=== PATIENT | male | born 1990 | race Caucasian/White ===

== ENCOUNTER 2019-02-06 15:25 | Inpatient (IN) | payer MEDICAID ==
--- NOTE | 2019-02-06 15:29 | ED Physician Documentation ---
PD HPI URI - Stated complaint Stated Complaint: CHEST PAIN/COUGHING UP BLOOD - History obtained from History obtained from: Patient - History of Present Illness Timing - onset: How many weeks ago (1) Timing duration: Weeks (1) Timing details: Gradual onset, Still present Associated symptoms: Fever, Chills, Nasal congestion, Productive cough, Hemoptysis. No: Sore throat Contributing factors: Travel (returned from [place] recently.). No: Sick contact, COPD / asthma Similar symptoms before: Has not had sx before Recently seen: Not recently seen Review of Systems Constitutional: reports: Fever, Chills, Myalgias, Fatigue Nose: reports: Congestion Throat: denies: Sore throat Cardiac: reports: Chest pain / pressure (He has had pain with inspiration and particularly cough progressively over the last week as he has had worsening cough. He complains of some hemoptysis along with phlegm production. He has had feeling of fever and chills.) Respiratory: reports: Dyspnea, Cough, Hemoptysis. denies: Wheezing GI: reports: Nausea (with poor oral intake for several days). denies: Vomiting, Diarrhea Skin: denies: Rash, Lesions Endocrine: denies: Weight loss PD PAST MEDICAL HISTORY - Past Medical History Cardiovascular: None Respiratory: None Neuro: None Endocrine/Autoimmune: None Psych: ADD/ADHD - Past Surgical History Past Surgical History: No - Present Medications Home Medications: Ambulatory Orders Medication Instructions Recorded Confirmed Lidocaine Patch 5% [Lidoderm Patch] 1 each TOP DAILY PRN #10 patch 04/07/16 Methocarbamol [Robaxin] 750 mg PO Q6H PRN #12 tablet 04/07/16 traMADol [Ultram] 50 mg PO Q6H PRN #12 tablet 04/07/16 - Allergies Allergies/Adverse Reactions: Allergies Allergy/AdvReac Type Severity Reaction Status Date / Time acetaminophen [From Tylenol] Allergy Unknown Verified 12/29/15 13:22 ibuprofen Allergy Unknown Verified 12/29/15 13:22 - Living Situation Living Situation: reports: With spouse/s.o. - Social History Does the pt smoke?: Yes Smoking Status: Current every day smoker Does the pt drink ETOH?: No Does the pt have substance abuse?: Yes - Immunizations Immunizations are current?: Yes PD ED PE NORMAL - Vitals Vital signs reviewed: Yes - General General: Alert and oriented X 3, Well developed/nourished, Other (He does appear little bit anxious. He is also appearing in discomfort with cough and deep breathing. Lung sounds are symmetric. His oxygenation is 97%. He is tachycardic. Has some mild fever here.) - HEENT HEENT: Ears normal, Pharynx benign - Neck Neck: Supple, no meningeal sign, No adenopathy, No JVD - Cardiac Cardiac: No murmur. No: RRR (Regular but tachycardic) - Respiratory Respiratory: No: Clear bilaterally (There is some mild scattered wheezing. There is diminished breath sounds throughout due to guarded breathing from pain. There are no obvious coarse sounds heard.) - Abdomen Abdomen: Soft, Non tender, Non distended - Back Back: No CVA TTP - Derm Derm: Normal color, Warm and dry - Extremities Extremities: No deformity, Normal ROM s pain, No edema, No calf tenderness / cord - Neuro Neuro: Alert and oriented X 3, No motor deficit, Normal speech Eye Opening: Spontaneous Motor: Obeys Commands Results - Vitals Vitals: Vital Signs - 24 hr 02/06/19 02/06/19 02/06/19 15:27 15:43 16:20 Temperature 38 C H Heart Rate 144 H 135 H 121 H Respiratory 20 24 24 Rate Blood Pressure 124/72 124/72 O2 Saturation 97 95 02/06/19 16:36 Temperature Heart Rate 111 H Respiratory 25 H Rate Blood Pressure 110/60 O2 Saturation 95 Oxygen O2 Source Room air - EKG (time done) 15:34 Rate: Rate (enter#) (136) Rhythm: Sinus tachycardia Gary: Normal Intervals: Normal OR QRS: Normal Ischemia: Normal ST segments. No: ST elevation c/w ischemia, ST depression - Labs Labs: Laboratory Tests 02/06/19 02/06/19 02/06/19 15:45 15:45 15:45 WBC 23.6 H RBC 4.19 L Hgb 12.6 L Hct 38.2 L MCV 91.0 MCH 29.9 MCHC 32.9 RDW 14.7 Plt Count 160 MPV 10.2 Neut # (Auto) Not Reportable Lymph # (Auto) Not Reportable Providence # (Auto) Not Reportable Eos # (Auto) Not Reportable Baso # (Auto) Not Reportable Absolute Nucleated RBC Not Reportable Total Counted 100 Band Neuts % (Manual) 7 Abnorm Lymph % (Manual) 0 Nucleated RBC % Not Reportable Neutrophils # (Manual) 21.7 H Lymphocytes # (Manual) 0.9 L Monocytes # (Manual) 0.9 Eosinophils # (Manual) 0.0 Basophils # (Manual) 0.0 Differential Comment MANUAL DIFFERENTIAL Manual Slide Review Indicated WBC Morphology NORMAL APPEARANCE Platelet Estimate NORMAL (130-450,000) Platelet Morphology NORMAL APPEARANCE RBC Morph Micro Appear 1+ HYPOCHROMASIA Sodium 127 L Potassium 3.6 Chloride 89 L Carbon Dioxide 24 Anion Gap 14.0 H BUN 47 H Creatinine 1.2 Estimated GFR (MDRD) 72 L Glucose 194 H Lactic Acid 2.7 H Calcium 8.1 L Total Bilirubin 2.4 H AST 119 H ALT 96 H Alkaline Phosphatase 133 H Total Protein 7.0 Albumin 2.6 L Globulin 4.4 H Albumin/Globulin Ratio 0.6 L Lipase 19 L - Rads (name of study) chest xray Radiology: Prelim report reviewed (Multifocal infiltrates consistent with multifocal pneumonia versus septic emboli or emboli.), See rad report PD MEDICAL DECISION MAKING - ED course Complexity details: re-evaluated patient (He does have an elevated white count. He had a low grade fever here. His lactate is elevated as are multiple lab data meant abnormalities. His progression of cough with worsening pain and hemoptysis along with fever and chills would be consistent with pneumonia. There is no calf tenderness no pedal edema. No history of clotting disorders. He is a smoker but no history of asthma. I talked with the hospitalist who will place him in the hospital for further care.), considered differential (It does s ound likely to be bronchitis or pneumonia given fever chills cough and then some hemoptysis. Will check chest x-ray as well as blood tests. We will give him some IV fluids and medication for pain and inflammation. Get a chest x-ray to evaluate for pneumonia or pneumothorax. Will try a nebulizer treatment as well.), d/w patient Departure - Departure Disposition: 66 [facility] DC/Xfer Clinical Impression: Tachycardia, Hemoptysis Pneumonia Qualifiers: Pneumonia type: due to unspecified organism Laterality: bilateral Lung location: unspecified part of lung Qualified Code(s): J18.9 - Pneumonia, unspecified organism Sepsis Qualifiers: Sepsis type: sepsis due to unspecified organism Qualified Code(s): A41.9 - Sepsis, unspecified organism Condition: Stable Record reviewed to determine appropriate education?: Yes
[2019-02-06] MEDS ORDERED: SODIUM CHLORIDE 0.9% 1,000 ML IV ONE ×2 (15:42→16:15)
[2019-02-06] MEDS ORDERED: ALBUTEROL NEB 2.5 MG/3 ML INH STA (15:42)
[2019-02-06] MEDS ORDERED: KETOROLAC 15 MG/ML VIAL IVP STA (15:42)
[2019-02-06] MEDS ORDERED: DEXAMETHASONE 10 MG/ML VIAL IVP STA (15:44)
[2019-02-06] MEDS ORDERED: MORPHINE 10 MG/ML VIAL IVP STA (15:44)
[2019-02-06 15:53] LABS: BASOPHILS % (AUTO) 0.2 %; EOSINOPHILS % (AUTO) 0.1 %; HGB - HEMOGLOBIN 12.6 g/dL (14.0-18.0); LYMPHOCYTES % (AUTO) 3.9 %; MEAN CORPUSCULAR HEMOGLOBIN 29.9 pg (27.0-31.0); MEAN CORPUSCULAR HGB CONC 32.9 g/dL (32.0-36.0); MEAN PLATELET VOLUME 10.2 fL (7.4-11.4); MONOCYTES % (AUTO) 4.4 %; NEUTROPHILS % (AUTO) 91.4 %; PLT - PLATELET COUNT 160 10^3/uL (130-450); RED BLOOD COUNT 4.19 10^6/uL (4.70-6.10); RED CELL DISTRIBUTION WIDTH 14.7 % (12.0-15.0); WHITE BLOOD COUNT 23.6 x10^3/uL (4.8-10.8)
[2019-02-06 15:54] LABS: ABNORMAL LYMPHS % (MANUAL) 0 %
[2019-02-06 16:06] LABS: ALBUMIN 2.6 g/dL (3.2-5.5); ALBUMIN/GLOBULIN RATIO 0.6 (1.0-2.2); BILIRUBIN,TOTAL 2.4 mg/dL (0.2-1.0); CALCIUM 8.1 mg/dL (8.5-10.3); CREATININE 1.2 mg/dL (0.6-1.2)
[2019-02-06 16:12] LABS: BAND NEUTROPHILS % (MANUAL) 7 %; DIFFERENTIAL COMMENT MANUAL DIFFERENTIAL; LYMPHOCYTES # (MANUAL) 0.9 10^3/uL (1.5-3.5); LYMPHOCYTES % (MANUAL) 4 %; MONOCYTES # (MANUAL) 0.9 10^3/uL (0.0-1.0); NEUTROPHILS # (MANUAL) 21.7 10^3/uL (1.5-6.6); NEUTROPHILS % (MANUAL) 85 %; PLATELET ESTIMATE, MANUAL NORMAL (130-450,000) (NORMAL); PLATELET MORPHOLOGY NORMAL APPEARANCE (NORMAL); RBC MORPHOLOGY (MULTIPLE) 1+ HYPOCHROMASIA (NORMAL)
[2019-02-06] MEDS ORDERED: CEFEPIME 2 GM in SODIUM CHLORIDE 0.9% MINIBAG 100 ML IV STA (16:20)
--- NOTE | 2019-02-06 16:29 | XRAY Report ---
Reason: cough and chest pain Procedure Date: 02/06/2019 Accession Number: [id number] / [id number] Procedure: XR - Chest 1 View X-Ray CPT Code: 60621 FULL RESULT: EXAM: CHEST RADIOGRAPHY EXAM DATE: 02/06/2019 03:56 PM. CLINICAL HISTORY: Cough and chest pain. COMPARISON: CT THORACIC SPINE 04/07/2016 5:40 PM. TECHNIQUE: 1 view. FINDINGS: Lungs/Pleura: Patchy airspace nodular opacities are seen in both lungs, largest in the right midlung zone. Differentials in acute setting include multifocal pneumonia, septic emboli, infarcts. There is a trace left pleural effusion. Mediastinum: Within exam limitations, the cardiomediastinal contour is normal. Other: None. IMPRESSION: Patchy airspace nodular opacities in both lungs, largest in right midlung zone. Differentials in acute setting include multifocal pneumonia, septic emboli or infarcts. Follow-up to complete resolution is recommended. Multifocal adenocarcinoma is not excluded. A trace left pleural effusion. RADIA
[2019-02-06] MEDS ORDERED: ONDANSETRON ODT 4 MG TABLET TL PRN (16:34)
[2019-02-06] MEDS ORDERED: ONDANSETRON 4 MG/2 ML VIAL IVP PRN (16:34)
[2019-02-06] MEDS ORDERED: ALBUTEROL NEB 2.5 MG/3 ML INH PRN (16:35)
[2019-02-06] MEDS ORDERED: LIDOCAINE PATCH 5% TOP PRN (16:42)
[2019-02-06] MEDS ORDERED: HYDROmorphone 1 MG/ML CARPUJECT IVP STA (16:51)
[2019-02-06] MEDS ORDERED: VANCOMYCIN INJ 1 GM in SODIUM CHLORIDE 0.9% 250 ML IV SCH (17:00)
[2019-02-06] MEDS: SODIUM CHLORIDE 0.9% 1,000 ML IV SCH (17:37)
[2019-02-06] MEDS: SACCHAROMYCES BOULARDII 250 MG CAPSULE PO SCH (17:37)
[2019-02-06] MEDS: SODIUM CHLORIDE FLUSH 0.9% 10 ML SYRINGE IVP SCH (17:39)
[2019-02-06 17:44] LABS: MUDS CUTOFF CONCENTRATIONS CUTOFF CONC BELOW:
[2019-02-06 17:46] LABS: BILIRUBIN,URINE NEGATIVE (NEGATIVE); GLUCOSE, URINE (UA) NEGATIVE (NEGATIVE); KETONES,URINE (UA) NEGATIVE (NEGATIVE); LEUKOCYTE ESTERASE, URINE NEGATIVE (NEGATIVE); NITRITE,URINE NEGATIVE (NEGATIVE); OCCULT BLOOD,URINE MODERATE (NEGATIVE); PROTEIN,URINE 30 mg/dL (NEGATIVE); UROBILINOGEN,URINE 1 (NORMAL) E.U./dL (NORMAL)
[2019-02-06 17:59] LABS: AMPHETAMINE SCREEN,URINE POSITIVE (NEGATIVE); BENZODIAZEPINES SCREEN, URINE NEGATIVE (NEGATIVE); CLARITY,URINE CLEAR (CLEAR); COCAINE SCREEN URINE NEGATIVE (NEGATIVE); METHADONE SCREEN, URINE NEGATIVE (NEGATIVE); METHAMPHETAMINES SCREEN, URINE POSITIVE (NEGATIVE); OPIATE SCREEN, URINE POSITIVE (NEGATIVE); OXYCODONE SCREEN, URINE NEGATIVE (NEGATIVE); PROPOXYPHENE SCREEN, URINE NEGATIVE (NEGATIVE); RBC,URINE 0-5 /HPF (0-5); SQUAMOUS EPITHELIAL CELL,UR RARE Squamous (<= Few); TRICYCLIC ANTIDEPRESSANT,URINE NEGATIVE (NEGATIVE)
[2019-02-06 18:00] LABS: BACTERIA,URINE None Seen /HPF (None Seen)
[2019-02-06] MEDS ORDERED: VANCOMYCIN INJ 1 GM, VANCOMYCIN INJ 500 MG in SODIUM CHLORIDE 0.9% 500 ML IV ONE (18:00)
--- NOTE | 2019-02-06 20:27 | HISTORY & PHYSICAL EXAMINATION ---
DATE OF SERVICE: 02/06/2019 Physician: Blaire Allan MD PRIMARY CARE PROVIDER: None, patient just moved back to this area on 01/24/2019. He went to work on 01/29/2019. 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 By the end of the shift, he said he was exhausted, covered in sweat, and starting to have just diffuse body aches and felt miserable. He could not go to work the next day and just spent the next day lying in bed. He started having a dry, nonproductive cough. He does smoke 1/2 pack per day, there is no one else sick. He just moved back from [place] and had been helping take care of his mom. He has had no recent dental work done, no surgical procedures done. He used to do heroin. He says the last time he did heroin was in 2016. Over the next few days, he has just felt miserable, spending most of his time in bed. Two days ago, he developed fevers, sweats. Amazingly enough, he has had a good appetite, and right now, he is just starving and would love some food. The cough turned to productive hemoptysis today. He is still weak, so short of breath that he had to come over to the emergency room. He was seen by Dr. Ochoa where his room air saturations were 95%, but he was quite tachycardic in the 130s. His white cell count is 23.6 K, and he has multifocal infiltrates on chest x-ray. In addition to the elevated white cell count, he is hyponatremic, dehydrated with a BUN of 47, and he has a lactic acid of 2.7. Liver enzymes are elevated. Urine has proteinuria, occult blood. Toxicology urine is pending. The patient meets criteria for sepsis. As such, he has been placed on cefepime and vancomycin and is being admitted to Med/Surg. PAST MEDICAL HISTORY 1. 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 2. Current tobacco abuser. 3. Remote history of hernia repair when he was an . ALLERGIES: ACETAMINOPHEN AND IBUPROFEN. He says that when he takes them, especially in high doses, he starts having problems with his respiration and he cannot breathe. When he was seen in the emergency room in 2015 for heroin withdrawal, he was on a Lidoderm patch, Robaxin, tramadol. He has not taken any of those medications in several years. SOCIAL HISTORY: Born in [place]. Started smoking 1/2 pack per day at the age of 14. Has experimented with many different substances that were illegal, but last used heroin in 2016. Denies any other use except cannabis since 2016. 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 He had gone to [place] to go take care of his mom for a while and had left the [place] around 2017. He just came back on the stated date above. [place]. FAMILY HISTORY: Mom is 58 and completely healthy as far as he knows. Dad is around 59, but is not in contact with him, so does not know anything about him. No siblings. His two children are completely healthy. REVIEW OF SYSTEMS CONSTITUTIONAL: In the last week, he has had fevers, chills, sweats, exhaustion, but prior to that, has been healthy. ENT: Terrible dentition. Desperately needs to see a dentist. Denies any problems with dysphagia, dysarthria, blurred vision, problems speaking, problems swallowing. PULMONARY: Positive as above. CARDIAC: Negative. Never had problems with valvular heart disease, rheumatic fever, orthopnea, edema. Pleuritic chest pain started last Saturday and has been quite severe. It is sharp and stabbing, especially in the left chest. GASTROINTESTINAL: Denies change in bowel habits, diarrhea, blood in stool. Denies icterus. Denies any abdominal pain, other than his muscles hurt from the coughing. No epigastric pain. No flank pain. GENITOURINARY: Denies dysuria, urgency, frequency. No change in the color of his urine. DERMATOLOGIC: No rashes, new lesions, pruritus. JOINTS: Denies new joint pain. 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 PSYCHIATRIC: Denies suicidal ideation, hallucinations, delusions. No depression or anxiety. NEUROLOGIC: Denies seizures, syncope, memory loss, blurred vision, headaches, any focal deficits. PHYSICAL EXAMINATION VITAL SIGNS: His temperature is 38 in the emergency room, pulse 144, blood pressure 124/72, respirations 20, and he is 97% on room air. After being transitioned to Med/Surg, his temperature is 37, pulse is 106, blood pressure 116/53, respirations 20, and he is 96% on room air. GENERAL: He is an exceedingly slender, young, white male who is pale. The skin around his eyelids is red, he is sitting upright in bed comfortably eating while his girlfriend is leaving the room. HEAD AND NECK: Has severely poor dentition, gaunt facies with bilateral temporal wasting, but no facial asymmetry. Normal speech. The back of the pharynx is normal. No exudate. NECK: Supple with anterior cervical adenopathy. No goiter or bruits. LUNGS: Have a squeaking rhonchi at inhalation, both lungs, diffusely and discretely. The left mid lung field has dullness and egophony. Occasional crackles, but when he has a deep cough, they disappear. No wheezing. HEART: PMI is normally placed in a very thin AP diameter chest wall. It is tachycardic with a very soft systolic ejection murmur at the apex. ABDOMEN: Soft, nontender. No organomegaly palpable. No hernias. No masses. EXTREMITIES: Without clubbing, cyanosis, or edema, but he has some joint deformities, especially his index finger and thumb, that he attributes to work place injuries. SKIN: Diaphoretic, pale. No rashes. NEUROLOGIC: He is alert and oriented to person, place, and time, follows 2-step commands, is able to sit up in the bed, feed himself, get up and walk to the bathroom without any assist or ataxia. LABORATORY DATA: White cell count is 23.6, hemoglobin 12.6, hematocrit 38.2. He has a left shift with neutrophils. Sodium 127, potassium 3.6, chloride 89, anion gap 14, BUN 14, creatinine 1.2, GFR 72, glucose 194, lactic acid 2.7, calcium 8.1. Total bilirubin 2.4, AST 119, ALT 96, alkaline phosphatase 133. Urinalysis had hematuria, but no infection. Toxicology screen pending. DIAGNOSTIC DATA: X-ray of the chest is with patchy airspace nodular opacities in both lungs, largest in the right mid lung zone. Differentials in this acute setting include multifocal pneumonia, septic emboli, or infarcts. Multifocal adenocarcinoma is not excluded in this 29-year-old male. ASSESSMENT/PLAN 1. Sepsis with multisystem organ involvement, and organ source of infection is pneumonia. Patient will be on sepsis protocol and started on empiric antibiotic therapy for pulmonic involvement. Atttestation that the patient will be discharged within 96 hours. 2. Multifocal community-acquired pneumonia in a patient who has a remote history of substance abuse. Again, sepsis protocol with cefepime and vancomycin day 1. He has already had blood cultures. We will attempt to induce sputum cultures. 3. Embolic appearance of pneumonia with high LFT's. History of drug abuse but is adamant he hasn't done any substances since 2016. Denies any history of endocarditis. Does have poor dentition with no recent dental work. I do hear a slight murmur. We will check echocardiogram. Will check MUDDS. 4. Abnormal liver function studies. Check hepatitis panel and ultrasound of liver and gallbladder. He has a negative abdominal exam. 5. High anion gap acidosis. I suspect sepsis is the cause. IV fluids for hydration, antibiotics should resolve this. 6. Tobacco abuse. Offered nicotine patch and he declines at this time. 7. FULL CODE STATUS. 8. Deep venous thrombosis prophylaxis will be DAPHNIE rubio. TD: 02/06/2019 18:37 ANNE
[2019-02-06] MEDS: SODIUM CHLORIDE FLUSH 0.9% 10 ML SYRINGE IVP PRN (22:32)
[2019-02-07] MEDS: CEFEPIME 2 GM in SODIUM CHLORIDE 0.9% MINIBAG 100 ML IV SCH ×4 (00:04→21:09)
[2019-02-07] MEDS: SODIUM CHLORIDE FLUSH 0.9% 10 ML SYRINGE IVP SCH ×3 (01:38→16:58)
[2019-02-07] MEDS: VANCOMYCIN INJ 1 GM in SODIUM CHLORIDE 0.9% 250 ML IV SCH ×3 (02:00→17:44)
[2019-02-07] MEDS: traMADol 50 MG TABLET PO PRN (03:52)
[2019-02-07] MEDS: SODIUM CHLORIDE 0.9% 1,000 ML IV SCH ×3 (05:27→19:35)
--- NOTE | 2019-02-07 08:29 | Ultrasound Report ---
Reason: multifocal pna, metamphet, septic, abnml lft Procedure Date: 02/07/2019 Accession Number: [id number] / [id number] Procedure: US - Abdomen Complete CPT Code: FULL RESULT: EXAM: ABDOMEN ULTRASOUND EXAM DATE: 02/07/2019 04:59 AM. CLINICAL HISTORY: Abnormal liver enzymes. Sepsis. Pneumonia. COMPARISON: None. TECHNIQUE: Real-time scanning was performed with static images obtained. FINDINGS: Liver: Enlarged, with right lobe 20.8 cm in height. Grossly smooth capsule. A somewhat nodular echogenic focus in the left lobe near the falciform ligament measures 1.8 x 1.3 x 1.6 cm, probable focal fatty deposition than focal lesion such as cavernous hemangioma. Mild geographic increased parenchymal echogenicity suggestive of fatty infiltration. No other focal lesions identified. Main portal vein flow: Hepatopetal. A small periportal lymph node measures 0.9 cm short axis, likely reactive. Gallbladder: Mobile gallstone 1.2 cm in maximal diameter. No gallbladder wall thickening, pericholecystic fluid, or sonographic Fields sign. Biliary System: Common bile duct measures 5.3 mm. No apparent intraductal filling defect or intrahepatic ductal dilatation. Pancreas: Unremarkable. Kidneys: No hydronephrosis or focal abnormalities. Right kidney 11.8 cm and left kidney 12.6 cm in length. Spleen: 14.5 cm in craniocaudal length. No focal abnormality. Aorta and Inferior Vena Cava: Normal caliber abdominal aorta. Patent IVC. Other: Trace perihepatic and perisplenic free fluid. IMPRESSION: 1. Cholelithiasis without sonographic signs of acute cholecystitis. 2. Upper normal caliber CBD for age. 3. Hepatosplenomegaly and trace ascites. 4. Suspect mild geographic hepatic steatosis and focal fatty deposition adjacent to the falciform ligament. No obviously suspicious liver lesion or nodular liver capsule to indicate lluvia cirrhosis. 5. A small reactive periportal node. 6. Remainder of the exam is unremarkable. RADIA
[2019-02-07] MEDS: SACCHAROMYCES BOULARDII 250 MG CAPSULE PO SCH ×2 (08:36→17:44)
[2019-02-07] MEDS: POLYETHYLENE GLYCOL 3350 17 GM PACKET PO SCH (08:37)
[2019-02-07] MEDS ORDERED: AZITHROMYCIN INJ 500 MG in SODIUM CHLORIDE 0.9% 250 ML IV SCH (09:00)
[2019-02-07] MEDS ORDERED: cefTRIAXone 2 GM in SODIUM CHLORIDE 0.9% MINIBAG 100 ML IV SCH (09:00)
[2019-02-07] MEDS: LORazepam 0.5 MG TABLET PO PRN ×3 (09:30→23:44)
[2019-02-07] MEDS: NICOTINE 14 MG PATCH TOP SCH (09:31)
[2019-02-07 10:00] LABS: CALCIUM 8.1 mg/dL (8.5-10.3)
[2019-02-07 10:03] LABS: BASOPHILS # (AUTO) 0.1 10^3/uL (0.0-0.1); BASOPHILS % (AUTO) 0.2 %; HGB - HEMOGLOBIN 11.4 g/dL (14.0-18.0); LYMPHOCYTES % (AUTO) 3.6 %; MEAN CORPUSCULAR HEMOGLOBIN 30.1 pg (27.0-31.0); MEAN CORPUSCULAR HGB CONC 33.1 g/dL (32.0-36.0); MEAN CORPUSCULAR VOLUME 90.9 fL (80.0-94.0); MEAN PLATELET VOLUME 9.7 fL (7.4-11.4); MONOCYTES # (AUTO) 2.5 10^3/uL (0.0-1.0); NEUTROPHILS # (AUTO) 24.7 10^3/uL (1.5-6.6); NEUTROPHILS % (AUTO) 87.2 %; PLT - PLATELET COUNT 183 10^3/uL (130-450); RED BLOOD COUNT 3.77 10^6/uL (4.70-6.10); RED CELL DISTRIBUTION WIDTH 14.5 % (12.0-15.0); WHITE BLOOD COUNT 28.3 x10^3/uL (4.8-10.8)
[2019-02-07 10:20] LABS: RBC MORPHOLOGY (MULTIPLE) 2+ ANISOCYTOSIS (NORMAL)
[2019-02-07] MEDS: NAPROXEN 250 MG TABLET PO PRN (16:32)
[2019-02-08] MEDS: VANCOMYCIN INJ 1 GM in SODIUM CHLORIDE 0.9% 250 ML IV SCH ×3 (02:01→17:49)
[2019-02-08] MEDS: SODIUM CHLORIDE FLUSH 0.9% 10 ML SYRINGE IVP SCH ×3 (04:50→17:52)
[2019-02-08] MEDS: CEFEPIME 2 GM in SODIUM CHLORIDE 0.9% MINIBAG 100 ML IV SCH ×3 (05:44→21:27)
[2019-02-08] MEDS: traMADol 50 MG TABLET PO PRN ×3 (07:06→21:32)
[2019-02-08 07:27] LABS: BASOPHILS # (AUTO) 0.1 10^3/uL (0.0-0.1); BASOPHILS % (AUTO) 0.4 %; EOSINOPHILS % (AUTO) 0.1 %; HGB - HEMOGLOBIN 9.7 g/dL (14.0-18.0); LYMPHOCYTES # (AUTO) 1.8 10^3/uL (1.5-3.5); LYMPHOCYTES % (AUTO) 9.3 %; MEAN CORPUSCULAR HEMOGLOBIN 30.1 pg (27.0-31.0); MEAN CORPUSCULAR HGB CONC 33.2 g/dL (32.0-36.0); MEAN CORPUSCULAR VOLUME 90.6 fL (80.0-94.0); MEAN PLATELET VOLUME 8.8 fL (7.4-11.4); MONOCYTES % (AUTO) 10.5 %; NEUTROPHILS # (AUTO) 15.3 10^3/uL (1.5-6.6); NEUTROPHILS % (AUTO) 79.7 %; PLT - PLATELET COUNT 198 10^3/uL (130-450); RED BLOOD COUNT 3.21 10^6/uL (4.70-6.10); RED CELL DISTRIBUTION WIDTH 14.5 % (12.0-15.0); WHITE BLOOD COUNT 19.2 x10^3/uL (4.8-10.8)
[2019-02-08 07:34] LABS: CALCIUM 7.6 mg/dL (8.5-10.3); CREATININE 0.7 mg/dL (0.6-1.2)
[2019-02-08] MEDS: SODIUM CHLORIDE 0.9% 1,000 ML IV SCH ×2 (08:20→21:27)
[2019-02-08] MEDS: SACCHAROMYCES BOULARDII 250 MG CAPSULE PO SCH ×2 (08:22→17:45)
[2019-02-08] MEDS: POLYETHYLENE GLYCOL 3350 17 GM PACKET PO SCH (08:23)
[2019-02-08] MEDS: NICOTINE 14 MG PATCH TOP SCH (08:23)
--- NOTE | 2019-02-08 09:26 | PROVIDER PROGRESS NOTE ---
Subjective - Prog Note Date Prog Note Date: 02/08/19 Prog Note Time: 09:24 - Subjective Pt reports feeling: No change Subjective: his main complaint is agitation and that he can't go out and smoke. second one is severe pleuritic chest pain worsening today. otherwise eating 100% of meals and asking for more walking in room. independent with ADL's Current Medications - Current Medications Current Medications: Active Medications Albuterol () 2.5 mg INH Q4HR PRN PRN Reason: Wheezing Sodium Chloride (Normal Saline 0.9%) 1,000 mls @ 100 mls/hr IV .Q10H [facility] Last Admin: 02/08/19 08:20 Dose: 100 mls/hr Cefepime HCl 2 gm/ Sodium (Chloride) 100 mls @ 200 mls/hr IV Q8HR [facility] Last Infusion: 02/08/19 06:15 Dose: Infused Vancomycin HCl 1 gm/ Sodium (Chloride) 250 mls @ 166.667 mls/hr IV Q8H [facility] Last Infusion: 02/08/19 03:35 Dose: Infused Lidocaine (Lidoderm Patch) 1 patch TOP DAILY PRN PRN Reason: PAIN Lorazepam (Ativan) 0.5 mg PO Q6H PRN PRN Reason: Anxiety Last Admin: 02/07/19 23:44 Dose: 0.5 mg Methocarbamol (Robaxin) 750 mg PO Q6H PRN PRN Reason: muscle spasm Naproxen (Naprosyn) 250 mg PO TID PRN PRN Reason: PAIN Last Admin: 02/07/19 16:32 Dose: 250 mg Nicotine (Nicoderm) 1 patch TOP DAILY [facility] Last Admin: 02/08/19 08:23 Dose: Not Given Ondansetron HCl (Zofran Inj) 4 mg IVP Q6HR PRN PRN Reason: Nausea / Vomiting Ondansetron HCl (Zofran Odt) 4 mg TL Q6HR PRN PRN Reason: Nausea / Vomiting Oxycodone HCl (Roxicodone) 5 mg PO Q4HR PRN PRN Reason: Pain 5 to 7 Polyethylene Glycol (Miralax) 17 gm PO DAILY [facility] Last Admin: 02/08/19 08:23 Dose: Not Given Saccharomyces Boulardii (Florastor) 250 mg PO BIDWM [facility] Last Admin: 02/08/19 08:22 Dose: 250 mg Sodium Chloride (Normal Saline Flush 0.9%) 10 ml IVP PRN PRN PRN Reason: NEEDED PER PROVIDER ORDERS Last Admin: 02/06/19 22:32 Dose: 10 ml Sodium Chloride (Normal Saline Flush 0.9%) 10 ml IVP 0100,0900,1700 SRINIVASA Last Admin: 02/08/19 08:23 Dose: Not Given Tramadol HCl (Ultram) 50 mg PO Q6H PRN PRN Reason: PAIN Last Admin: 02/08/19 07:06 Dose: 50 mg No Known Home Medications 02/07/19 Objective - Vital Signs/Intake & Output Reviewed Vital Signs: Yes Vital Signs: Vital Signs x48h Temp Pulse Resp BP Pulse Ox 02/08/19 08:00 37.3 C 102 H 26 H 126/74 92 02/08/19 06:00 37.6 C H 107 H 22 123/68 92 Intake & Output: Intake & Output 02/05/19 02/06/19 02/07/19 02/08/19 23:59 23:59 23:59 23:59 Intake Total 3163.333 4466.667 1090.000 Output Total 300 915 725 Balance 2863.333 3551.667 365.000 - Objective General Appearance: positive: No acute distress, Alert, Other (gaunt, cachectic while male. looks crhonically ill) Eyes Bilateral: positive: PERRL ENT: positive: Other (poor poor dentition) Neck: positive: No JVD. negative: Stiff neck Respiratory: positive: Chest non-tender, Rhonchi (squeaking and both sides, does have left pleural rub). negative: Wheezes, Rales Cardiovascular: positive: Regular rate & rhythm, Tachycardia, Systolic murmur. negative: Gallop/S4, Friction rub Abdomen: positive: Non-tender, Nml bowel sounds, No distention. negative: Guarding, Rebound Skin: positive: Warm, Dry Extremities: positive: Full ROM, No pedal edema Neurologic/Psychiatric: positive: Oriented x3, CN's nml (2-12), Motor nml - Lab Results Fish Bones: 02/08/19 07:18 02/08/19 07:18 Other Labs: Lab Results x24hrs 02/08/19 02/08/1919 Range/Units 07:18 07:18 09:43 WBC 19.2 H (4.8-10.8) x10^3/uL RBC 3.21 L (4.70-6.10) 10^6/uL Hgb 9.7 L (14.0-18.0) g/dL Hct 29.1 L (42.0-52.0) % MCV 90.6 (80.0-94.0) fL MCH 30.1 (27.0-31.0) pg MCHC 33.2 (32.0-36.0) g/dL RDW 14.5 (12.0-15.0) % Plt Count 198 (130-450) 10^3/uL MPV 8.8 (7.4-11.4) fL Neut # (Auto) (1.5-6.6) 10^3/uL Lymph # (Auto) (1.5-3.5) 10^3/uL [place] # (Auto) (0.0-1.0) 10^3/uL Eos # (Auto) (0.0-0.7) 10^3/uL Baso # (Auto) (0.0-0.1) 10^3/uL Absolute Nucleated RBC x10^3/uL Nucleated RBC % /100WBC Manual Slide Review Indicated RBC Morph Micro Appear (NORMAL) Sodium 132 L (135-145) mmol/L Potassium 4.0 (3.5-5.0) mmol/L Chloride 102 (101-111) mmol/L Carbon Dioxide 20 L (21-32) mmol/L Anion Gap 10.0 (6-13) BUN 21 H (6-20) mg/dL Creatinine 0.7 (0.6-1.2) mg/dL Estimated GFR (MDRD) 134 (>89) Glucose 128 H (70-100) mg/dL Lactic Acid 2.8 H (0.5-2.2) mmol/L Calcium 7.6 L (8.5-10.3) mg/dL 02/07/19 02/07/19 Range/Units 09:43 09:43 WBC 28.3 H (4.8-10.8) x10^3/uL RBC 3.77 L (4.70-6.10) 10^6/uL Hgb 11.4 L (14.0-18.0) g/dL Hct 34.3 L (42.0-52.0) % MCV 90.9 (80.0-94.0) fL MCH 30.1 (27.0-31.0) pg MCHC 33.1 (32.0-36.0) g/dL RDW 14.5 (12.0-15.0) % Plt Count 183 (130-450) 10^3/uL MPV 9.7 (7.4-11.4) fL Neut # (Auto) 24.7 H (1.5-6.6) 10^3/uL Lymph # (Auto) 1.0 L (1.5-3.5) 10^3/uL [place] # (Auto) 2.5 H (0.0-1.0) 10^3/uL Eos # (Auto) 0.0 (0.0-0.7) 10^3/uL Baso # (Auto) 0.1 (0.0-0.1) 10^3/uL Absolute Nucleated RBC 0.01 x10^3/uL Nucleated RBC % 0.0 /100WBC Manual Slide Review Indicated RBC Morph Micro Appear 2+ ANISOCYTOSIS (NORMAL) Sodium 135 (135-145) mmol/L Potassium 4.2 (3.5-5.0) mmol/L Chloride 101 (101-111) mmol/L Carbon Dioxide 20 L (21-32) mmol/L Anion Gap 14.0 H (6-13) BUN 34 H (6-20) mg/dL Creatinine 1.0 (0.6-1.2) mg/dL Estimated GFR (MDRD) 89 (>89) Glucose 193 H (70-100) mg/dL Lactic Acid (0.5-2.2) mmol/L Calcium 8.1 L (8.5-10.3) mg/dL ABX Reporting Has patient been on IV antibiotics over the past 48 hours?: Yes Sepsis Event Note (H) - Evaluation Current Stage of Sepsis: Sepsis Possible source of Sepsis: positive: Endocarditis - Sepsis Criteria Sepsis Criteria: Recorded Temperature greater than 38.3C or Less than 36C, Recorded Heart Rate greater than 90 bpm, WBC count greater than 12,000 or less than 4000, Metabolic: lactate > 2 mmol/L, Hepatic: Bilirubin greater than 2mg/dl Assessment/Plan - Problem List (1) Sepsis Impression: Has Not completely resolved. Carbon dioxide is down to 20. Lactic acid back up again. He presented as sepsis: Fever, tachycardia, elevated white cell count, emboli with pneumonia, emboli to liver. Source is endocarditis. He still has manifestation of infection he just no longer meets septic criteria. 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 In speaking to Dr. Aguilera, cardiology at , indications for urgent transfer and surgical need would be vegetations greater than 2 cm, valve destruction, heart failure, persistent bacteremia. [facility] has accepted the patient. I am now just waiting for a bed. Dr. Aguilera has asked me to call them if this patient situation changes. Continues to have fevers Plan: Continue antibiotics Check daily blood cultures to assess for bacteremia and efficacy of therapy Qualifiers: Endocarditis type: infective Infective endocarditis organism: bacterial Chronicity: acute Qualified Code(s): I33.0 - Acute and subacute infective endocarditis (3) Pneumonia Impression: Due to septic emboli. Source is most likely endocarditis. This is the patient's main complaint. He has diffuse bilateral chest pain that is intensely pleuritic and makes him miserable. Plan: Repeat CT to assess if he has increasing emboli Pain control with morphine will be added. He is already on Naprosyn. I do not know if Toradol would be contraindicated and we will investigate that. Qualifiers: Pneumonia type: due to unspecified organism Laterality: bilateral Lung location: unspecified part of lung Qualified Code(s): J18.9 - Pneumonia, unspecified organism (4) Septic embolism Impression: Source is most likely endocarditis. This is the patient's main complaint. He has diffuse bilateral chest pain that is intensely pleuritic and makes him miserable. Plan: Repeat CT to assess if he has increasing emboli Pain control with morphine will be added. He is already on Naprosyn. I do not know if Toradol would be contraindicated and we will investigate that. (5) Abnormal LFTs Impression: Abdominal ultrasound on February 07 shows an enlarged liver with the right lobe being 20.8 cm and grossly smooth. The left lobe has a nodular echogenic focus near the falciform ligament measuring 1.8 x 1.3 x 1.6 cm. Frakes to be probable fatty focal deposition rather than a focal lesion such as a cavernous hemangioma. No other focal lesions identified. Hepato-pedal portal vein flow. A mobile gallstone 1.2 cm. Common bile duct 5.3 mm. Kidneys without hydronephrosis. Hepatosplenomegaly and trace ascites. (6) Tobacco abuse Impression: Nicotine patch offered. Started on Ativan. Very anxious.
[2019-02-08 09:29] LABS: PLATELET ESTIMATE, MANUAL NORMAL (130-450,000) (NORMAL); PLATELET MORPHOLOGY NORMAL APP (NORMAL); RBC MORPHOLOGY (MULTIPLE) NORMAL APP (NORMAL)
[2019-02-08] MEDS: oxyCODONE 5 MG TABLET PO PRN ×4 (09:29→23:13)
[2019-02-08] MEDS: METHOCARBAMOL 500 MG TABLET PO PRN ×3 (09:29→23:13)
--- NOTE | 2019-02-08 10:24 | PROVIDER PROGRESS NOTE ---
Subjective - Prog Note Date Prog Note Date: 02/07/19 Prog Note Time: 16:00 - Subjective Pt reports feeling: No change Subjective: He wanted to go outside. He promised not to smoke. He was climbing the rosenberg and getting increasingly agitated and anxious. I finally agreed to let him sit outside as long as he stood within the double doors of the hallway to enter into the hospital. I told him I cannot let him smoke. He continues to have pleuritic chest pain. But he ambulates in the room, goes to the bathroom by himself. Eating 100% of his food. He still feels "like Scheidt". Current temperature is 38 degrees. Still tachycardic. Objective - Vital Signs/Intake & Output Reviewed Vital Signs: Yes Vital Signs: Selected Entries 02/07/19 02/07/19 02/07/19 08:00 16:00 16:29 Temperature 36.9 C 37.9 C H 38.1 C H Selected Entries 02/07/19 02/07/19 08:00 16:00 Heart Rate [ 98 107 H Brachial] Respiratory 18 20 Rate Blood Pressure 118/77 136/69 H [Left Brachial artery] O2 Saturation 94 O2 Source Room air Intake & Output: Intake & Output 02/05/19 02/06/19 02/07/19 23:59 23:59 23:59 Intake Total 3163.333 4466.667 Output Total 300 915 Balance 2863.333 3551.667 - Objective General Appearance: positive: Alert, Moderate distress (From anxiety, nicotine withdrawal, possible methamphetamine withdrawal), Other (His girlfriend is at the bedside. She is tearful. Trying to calm him down and to get him to behave by not smoking. He is cachectic, bilateral temporal wasting.) Eyes Bilateral: positive: PERRL, EOMI ENT: positive: Other (Poor dentition) Neck: positive: No JVD, Lymphadenopathy (R), Lymphadenopathy (L) (Both his anterior cervical neck chain is enlarged and shotty). negative: Stiff neck, Carotid bruit Respiratory: positive: Chest non-tender, Rhonchi (Bilateral squeaking rhonchi left worse than right. Still with dull left mid lobe sounds that I think are just his heart in the way). negative: Wheezes, Rales Cardiovascular: positive: Regular rate & rhythm, Tachycardia, Systolic murmur. negative: Gallop/S4, Friction rub Abdomen: positive: Non-tender, No organomegaly, Nml bowel sounds, No distention, Hepatomegaly. negative: Guarding, Rebound Skin: positive: Warm, Dry, Pallor Extremities: positive: Pedal edema Neurologic/Psychiatric: positive: Oriented x3, CN's nml (2-12), Motor nml - Lab Results Fish Bones: 02/08/19 07:18 02/08/19 07:18 Other Labs: Laboratory Tests 02/06/19 02/07/19 02/07/19 20:12 09:43 09:43 WBC 28.3 H Hgb 11.4 L Hct 34.3 L Plt Count 183 Sodium 135 Potassium 4.2 Chloride 101 Carbon Dioxide 20 L Anion Gap 14.0 H BUN 34 H Creatinine 1.0 Estimated GFR (MDRD) 89 Glucose 193 H Lactic Acid 2.0 Calcium 8.1 L Lab Results x24hrs Microbiology 02/06/19 16:32 Blood Blood Culture - Preliminary with gram positive cocci in cluster 02/06/19 15:45 Blood Blood Culture - Preliminary same as above. All 01/22 positive - Diagnostic Imaging Diagnostic Imaging Results: positive: Prelim report reviewed (of echo) ABX Reporting Has patient been on IV antibiotics over the past 48 hours?: Yes Sepsis Event Note (H) - Evaluation Current Stage of Sepsis: Sepsis Possible source of Sepsis: positive: Endocarditis - Sepsis Criteria Sepsis Criteria: Recorded Temperature greater than 38.3C or Less than 36C, Recorded Heart Rate greater than 90 bpm, WBC count greater than 12,000 or less than 4000, Metabolic: lactate > 2 mmol/L, Hepatic: Bilirubin greater than 2mg/dl Assessment/Plan - Problem List (1) Sepsis Impression: Has improved and that lactic acid is gone. But this patient continues to have a fever, elevated white cell count, tachycardia. Plan: Continue antibiotics. Qualifiers: Sepsis type: sepsis due to unspecified organism Qualified Code(s): A41.9 - Sepsis, unspecified organism (2) Endocarditis Impression: Echocardiogram shows a left ventricle size is normal. Ejection fraction 55-60%. Right ventricle size is normal in function. The aortic valve is trileaflet. His tricuspid valve has an anterior non-mobile vegetation. A small non-mobile vegetation attached to the septal tricuspid valve. Vegetation is 1.8 cm largest dimension. Right ventricular systolic pressure at rest is 43 mm. Plan: I spoke to [facility]. They have a very poor access to bed situation at that time. I spoke to the transfer center early in the morning, and then spoke to Dr. Aguilera finally around 4 in the afternoon. Indications for immediate transfer would be: +tricuspid vegetation greater than 2 cm. This patient is 1.8. +Valve destruction. That is not currently seen. +Heart failure. Patient without the symptoms. +Persistent bacteremia. At this time Dr. Aguilera is accepted the patient. However there is a bed shortage and I need to call tomorrow to see if we can transfer him. If the patient changes in status and to notify the transfer center. Will recheck blood culture daily starting tomorrow. Qualifiers: Endocarditis type: infective Infective endocarditis organism: bacterial Chronicity: acute Qualified Code(s): I33.0 - Acute and subacute infective endocarditis (3) Pneumonia Impression: from embolic phenomena due to endocarditis. Plan: continue abx. Day #2. adjust on the basis of cultures. Qualifiers: Pneumonia type: due to unspecified organism Laterality: bilateral Lung location: unspecified part of lung Qualified Code(s): J18.9 - Pneumonia, unspecified organism (4) Septic embolism Impression: as in above problem. (5) Abnormal LFTs Impression: Thought to be from emboli but that would mean left valve vegetation and he is right sided vegetation. Has focal area on US. await hepatitis panel results. (6) Tobacco abuse Impression: continue to offer nicotine and add ativan today prn.
[2019-02-08 10:39] LABS: VANCOMYCIN,TROUGH 14.1 ug/mL (10.0-20.0)
[2019-02-08] MEDS: LORazepam 0.5 MG TABLET PO PRN ×2 (13:17→19:02)
[2019-02-08] MEDS: NAPROXEN 250 MG TABLET PO PRN (17:38)
[2019-02-08] MEDS: MORPHINE 2 MG/ML SYRINGE IVP PRN ×2 (19:12→21:25)
[2019-02-09] MEDS: LORazepam 0.5 MG TABLET PO PRN (01:21)
[2019-02-09] MEDS: MORPHINE 2 MG/ML SYRINGE IVP PRN ×3 (01:21→16:31)
[2019-02-09] MEDS ORDERED: LORazepam 2 MG/ML VIAL IVP STA (02:07)
[2019-02-09] MEDS ORDERED: LORazepam 0.5 MG TABLET PO PRN (02:08)
[2019-02-09] MEDS: SODIUM CHLORIDE FLUSH 0.9% 10 ML SYRINGE IVP SCH ×2 (02:14→08:19)
[2019-02-09] MEDS ORDERED: METHOCARBAMOL 500 MG TABLET PO PRN (02:23)
[2019-02-09] MEDS ORDERED: KETOROLAC 30 MG/ML VIAL IVP PRN (02:25)
[2019-02-09] MEDS: VANCOMYCIN INJ 1 GM in SODIUM CHLORIDE 0.9% 250 ML IV SCH ×2 (02:38→09:48)
[2019-02-09] MEDS: GABAPENTIN 400 MG CAPSULE PO SCH ×3 (03:40→13:29)
[2019-02-09] MEDS: oxyCODONE 5 MG TABLET PO PRN ×3 (03:40→13:29)
[2019-02-09 05:48] LABS: BASOPHILS % (AUTO) 0.2 %; EOSINOPHILS # (AUTO) 0.1 10^3/uL (0.0-0.7); EOSINOPHILS % (AUTO) 0.3 %; HGB - HEMOGLOBIN 9.4 g/dL (14.0-18.0); LYMPHOCYTES # (AUTO) 1.9 10^3/uL (1.5-3.5); LYMPHOCYTES % (AUTO) 9.9 %; MEAN CORPUSCULAR HGB CONC 34.2 g/dL (32.0-36.0); MEAN CORPUSCULAR VOLUME 90.7 fL (80.0-94.0); MEAN PLATELET VOLUME 8.3 fL (7.4-11.4); MONOCYTES # (AUTO) 1.8 10^3/uL (0.0-1.0); MONOCYTES % (AUTO) 9.4 %; NEUTROPHILS # (AUTO) 15.4 10^3/uL (1.5-6.6); NEUTROPHILS % (AUTO) 80.2 %; PLT - PLATELET COUNT 254 10^3/uL (130-450); RED BLOOD COUNT 3.03 10^6/uL (4.70-6.10); RED CELL DISTRIBUTION WIDTH 13.9 % (12.0-15.0); WHITE BLOOD COUNT 19.2 x10^3/uL (4.8-10.8)
[2019-02-09 05:54] LABS: CALCIUM 7.4 mg/dL (8.5-10.3); CREATININE 0.8 mg/dL (0.6-1.2)
[2019-02-09] MEDS: CEFEPIME 2 GM in SODIUM CHLORIDE 0.9% MINIBAG 100 ML IV SCH ×2 (05:59→13:29)
[2019-02-09] MEDS: NICOTINE 14 MG PATCH TOP SCH (08:18)
[2019-02-09] MEDS: POLYETHYLENE GLYCOL 3350 17 GM PACKET PO SCH (08:19)
[2019-02-09] MEDS: SACCHAROMYCES BOULARDII 250 MG CAPSULE PO SCH (08:20)
[2019-02-09] MEDS ORDERED: IOVERSOL 320 100 ML VIAL IVP ONE ×2 (08:50→16:12)
[2019-02-09] MEDS: SODIUM CHLORIDE 0.9% 1,000 ML IV SCH (09:05)
--- NOTE | 2019-02-09 09:48 | CT Report ---
Reason: endocariditis, septic, emboli in cxr Procedure Date: 02/09/2019 Accession Number: [id number] / [id number] Procedure: CT - ANGIO CHEST W/WO CPT Code: FULL RESULT: EXAM: CT ANGIOGRAM CHEST EXAM DATE: 02/09/2019 09:31 AM. CLINICAL HISTORY: Endocarditis, septic emboli in chest x-ray. COMPARISON: None. TECHNIQUE: Routine helical imaging was performed through the chest in the pulmonary arterial phase. IV Contrast: OPTI 320 80 mL. Reconstructions: Coronal 3-D MIP reconstructions.Sagittal and coronal. In accordance with CT protocol optimization, one or more of the following dose reduction techniques were utilized for this exam: automated exposure control, adjustment of mA and/or KV based on patient size, or use of iterative reconstructive technique. FINDINGS: Pulmonary Arteries: Diagnostic quality: Adequate through the proximal lobar arteries and there after markedly limited due to both contrast bolus timing and motion. There are pulmonary emboli predominantly in both lower lobes reaching into the segmental arteries, burden is greater on the left where a thrombus at the bifurcation has typical appearance suggestive of acute thrombus and further downstream thrombus appears to demonstrate eccentric mural predominant remodeling suggestive of the possibility of a chronic component. Segmental pulmonary emboli in the upper lungs are difficult to evaluate given scan limitations. RV/LV is within normal limits. There is no interventricular septal bowing. There is no reflux of contrast material in the IVC. Lungs/Pleura: There are numerous predominantly circular appearing areas of nodules with cavitation and surrounding groundglass halo, which are generally speaking nonspecific, but in this clinical setting most suggestive of hematogenous seeding of a likely infectious angioinvasive process. There is the suggestion of hemorrhage into these cavitary lesions, for example image 61 series 11 small pulmonary arterial branch with blush in the left upper lobe. There are bilateral pleural effusions, small to moderate right greater than left. No pneumothorax. Mediastinum: There is right hilar lymphadenopathy, up to 2.2 cm and there are prominent left hilar lymph nodes which do not meet size criteria. Similarly, prominent lymph nodes are seen within the mediastinum. Thoracic Aorta: Unremarkable. Upper Abdomen: Unremarkable. Other: None. IMPRESSION: Bilateral lower lobe predominant pulmonary emboli with suggestion of acute and possibly chronic component. Suggestion of right-sided cardiac enlargement. Bilateral nodular consolidation with suggestion of cavitation and surrounding groundglass suggestive of angioinvasive process, distribution suggestive of hematogenous seeding. CRITICAL RESULT: The findings were discussed with Dr. Allan on 02/09/2019 at 9:30 AM. RADIA
[2019-02-09] MEDS: SODIUM CHLORIDE FLUSH 0.9% 10 ML SYRINGE IVP PRN (09:49)
[2019-02-09 14:52] LABS: HIV AG/AB 4TH GEN NON-REACTIVE (NON-REACTIVE)
--- NOTE | 2019-02-09 15:20 | Ultrasound Report ---
Reason: multiple PE Procedure Date: 02/09/2019 Accession Number: [id number] / [id number] Procedure: US - Duplex Ext Veins Bilateral CPT Code: FULL RESULT: EXAM: BILATERAL LOWER EXTREMITY VENOUS ULTRASOUND EXAM DATE: 02/09/2019 03:15 PM. CLINICAL HISTORY: Multiple PE. COMPARISON: None. TECHNIQUE: Real-time sonographic vascular imaging was performed by the business continuity strategy director through the lower extremities utilizing both color-flow and Doppler spectral analysis. Multiple lead generation representative static images were saved for review. FINDINGS: Right: Common Femoral Vein (CFV): Normal. CFV-GSV Junction: Normal. Profunda Femoral Vein (PFV): Normal. Femoral Vein (FV) Prox: Normal. Femoral Vein (FV) Mid: Normal. Femoral Vein (FV) Dist: Normal. Popliteal Vein: Normal. Posterior Tibial Veins: Normal. Peroneal Veins: Normal. Left: Common Femoral Vein (CFV): Normal. CFV-GSV Junction: Normal. Profunda Femoral Vein (PFV): Normal. Femoral Vein (FV) Prox: Normal. Femoral Vein (FV) Mid: Normal. Femoral Vein (FV) Dist: Normal. Popliteal Vein: Normal. Posterior Tibial Veins: Normal. Peroneal Veins: Normal. Other: None. IMPRESSION: No evidence for deep venous thrombosis bilaterally. RADIA
[2019-02-09 15:40] LABS: HEPATITIS A IGM NON-REACTIVE (NON-REACTIVE); HEPATITIS B CORE ANTIBODY IGM NON-REACTIVE (NON-REACTIVE); HEPATITIS B SURFACE ANTIGEN NON-REACTIVE (NON-REACTIVE); HEPATITIS C ANTIBODY REACTIVE (NON-REACTIVE)
[2019-02-09 16:11] VITALS: BP 115/66
--- NOTE | 2019-02-09 17:24 | PROVIDER PROGRESS NOTE ---
Objective - Vital Signs/Intake & Output Vital Signs: Vital Signs x48h Temp Pulse Resp BP Pulse Ox 02/09/19 16:07 38.9 C H 118 H 27 H 115/66 93 02/09/19 12:36 37.3 C 120 H 32 H 129/66 92 Intake & Output: Intake & Output 02/06/19 02/07/19 02/08/19 02/09/19 23:59 23:59 23:59 23:59 Intake Total 3163.333 4466.667 3580.000 1948.333 Output Total 179 266 7953 400 Balance 2863.333 3551.667 2155.000 1548.333 - Lab Results Fish Bones: 02/09/19 05:29 02/09/19 05:29 Other Labs: Lab Results x24hrs 02/09/19 02/09/19 02/07/19 Range/Units 05:29 05:29 09:43 WBC 19.2 H (4.8-10.8) x10^3/uL RBC 3.03 L (4.70-6.10) 10^6/uL Hgb 9.4 L (14.0-18.0) g/dL Hct 27.5 L (42.0-52.0) % MCV 90.7 (80.0-94.0) fL MCH 31.0 (27.0-31.0) pg MCHC 34.2 (32.0-36.0) g/dL RDW 13.9 (12.0-15.0) % Plt Count 254 (130-450) 10^3/uL MPV 8.3 (7.4-11.4) fL Neut # (Auto) 15.4 H (1.5-6.6) 10^3/uL Lymph # (Auto) 1.9 (1.5-3.5) 10^3/uL [place] # (Auto) 1.8 H (0.0-1.0) 10^3/uL Eos # (Auto) 0.1 (0.0-0.7) 10^3/uL Baso # (Auto) 0.0 (0.0-0.1) 10^3/uL Absolute Nucleated RBC 0.00 x10^3/uL Nucleated RBC % 0.0 /100WBC Sodium 133 L (135-145) mmol/L Potassium 4.1 (3.5-5.0) mmol/L Chloride 103 (101-111) mmol/L Carbon Dioxide 22 (21-32) mmol/L Anion Gap 8.0 (6-13) BUN 15 (6-20) mg/dL Creatinine 0.8 (0.6-1.2) mg/dL Estimated GFR (MDRD) 115 (>89) Glucose 113 H (70-100) mg/dL Calcium 7.4 L (8.5-10.3) mg/dL Hepatitis A IgM Ab NON-REACTIVE (NON-REACTIVE) Hep Bs Antigen NON-REACTIVE (NON-REACTIVE) Hep B Core IgM Ab NON-REACTIVE (NON-REACTIVE) Hepatitis C Antibody REACTIVE A (NON-REACTIVE) Hep C Ab Signal/Cutoff 31.00 H (<1.00) HIV 1&2 Ag/Ab, 4th Gen (NON-REACTIVE) 02/07/19 Range/Units 09:43 WBC (4.8-10.8) x10^3/uL RBC (4.70-6.10) 10^6/uL Hgb (14.0-18.0) g/dL Hct (42.0-52.0) % MCV (80.0-94.0) fL MCH (27.0-31.0) pg MCHC (32.0-36.0) g/dL RDW (12.0-15.0) % Plt Count (130-450) 10^3/uL MPV (7.4-11.4) fL Neut # (Auto) (1.5-6.6) 10^3/uL Lymph # (Auto) (1.5-3.5) 10^3/uL [place] # (Auto) (0.0-1.0) 10^3/uL Eos # (Auto) (0.0-0.7) 10^3/uL Baso # (Auto) (0.0-0.1) 10^3/uL Absolute Nucleated RBC x10^3/uL Nucleated RBC % /100WBC Sodium (135-145) mmol/L Potassium (3.5-5.0) mmol/L Chloride (101-111) mmol/L Carbon Dioxide (21-32) mmol/L Anion Gap (6-13) BUN (6-20) mg/dL Creatinine (0.6-1.2) mg/dL Estimated GFR (MDRD) (>89) Glucose (70-100) mg/dL Calcium (8.5-10.3) mg/dL Hepatitis A IgM Ab (NON-REACTIVE) Hep Bs Antigen (NON-REACTIVE) Hep B Core IgM Ab (NON-REACTIVE) Hepatitis C Antibody (NON-REACTIVE) Hep C Ab Signal/Cutoff (<1.00) HIV 1&2 Ag/Ab, 4th Gen NON-REACTIVE (NON-REACTIVE) Sepsis Event Note (H) - Evaluation Current Stage of Sepsis: Sepsis Possible source of Sepsis: positive: Endocarditis - Sepsis Criteria Sepsis Criteria: Recorded Temperature greater than 38.3C or Less than 36C, Recorded Heart Rate greater than 90 bpm, WBC count greater than 12,000 or less than 4000, Metabolic: lactate > 2 mmol/L, Hepatic: Bilirubin greater than 2mg/dl Assessment/Plan - Problem List (1) Sepsis Qualifiers: Sepsis type: sepsis due to unspecified organism Qualified Code(s): A41.9 - Sepsis, unspecified organism (2) Endocarditis Qualifiers: Endocarditis type: infective Infective endocarditis organism: bacterial Chronicity: acute Qualified Code(s): I33.0 - Acute and subacute infective endocarditis (3) Pneumonia Qualifiers: Pneumonia type: due to unspecified organism Laterality: bilateral Lung location: unspecified part of lung Qualified Code(s): J18.9 - Pneumonia, unspecified organism
--- NOTE | 2019-02-09 19:15 | DISCHARGE SUMMARY ---
Physician: Blaire Allan MD DATE OF ADMISSION: 02/06/2019 DATE OF DISCHARGE: 02/09/2019 DISCHARGE DIAGNOSES 1. Sepsis with endocarditis. 2. Tricuspid valve endocarditis and vegetation. 3. Intravenous drug abuse with methamphetamines. 4. Hepatitis C. 5. Embolic pneumonia. 6. Anion gap acidosis with lactic acidosis. 7. Tobacco abuse. 8. Hypoxia. MEDICATIONS DURING THIS STAY 1. Cefepime 2 grams q.8 hours since admission. 2. Azithromycin 500 mg on the first day of admission. 3. Vancomycin 1 gram q.12 hours since admission. 4. Ceftriaxone 2 grams once on the day of admission. 5. Albuterol via nebulizer as needed. 6. Decadron 10 mg once on admission. 7. Gabapentin 400 mg p.o. t.i.d. 8. Dilaudid 1 mg every 2 hours as needed. 9. Toradol 30 mg every 6 hours as needed. 10. Lidoderm patch topically every 12 hours. 11. Ativan 0.5 mg p.o. q.6 hours p.r.n.; increased to 1 mg p.o. q.4 hours p.r.n. 12. Robaxin 750 mg p.o. q.6 hours p.r.n.; increased to 1000 mg p.o. q.6 hours p.r.n. 13. Morphine 2 mg every 2 hours as needed IV. 14. Naprosyn 250 mg p.o. t.i.d. p.r.n.; discontinued before Toradol. 15. Nicotine patch 14 mcg daily. 16. Zofran 4 mg every 6 hours as needed for nausea. 17. Oxycodone 5-10 mg every 4 hours as needed for pain. 18. Florastor 250 mg p.o. b.i.d. 19. Tramadol 50 mg p.o. q.6 hours p.r.n. pain. PRINCIPAL PROCEDURES 1. Chest x-ray on admission with patchy airspace nodular opacities in both lungs. Largest in right midlung zone. Differential includes multifocal pneumonia, septic emboli, or infarcts. Multifocal adenocarcinoma in this age group is not excluded. 2. Abdominal ultrasound. Enlarged liver with right lobe 20.8 cm in height. Grossly smooth capsule. Somewhat nodular echogenic focus in the left lobe near the falciform ligament, measuring 1.8 x 1.3 x 1.6 cm. Probable focal fatty deposition than focal lesion, such as cavernous hemangioma. Mild geographic increased parenchymal echogenicity suggestive of fatty infiltration. Portal vein flow is hepatopetal. Mobile gallstone 1.2 cm in size. Common bile duct 5.3 mm. No hydronephrosis or focal abnormalities. 3. Chest/thorax CT angiogram with pulmonary emboli predominantly in both lower lobes reaching into the segmental arteries; burden is greater on the left, where a thrombus at the bifurcation has typical appearance suggestive of acute thrombus, and further downstream thrombus appears to demonstrate eccentric mural predominant remodeling suggestive of possibility of chronic component. Segmental pulmonary emboli in the upper lungs are difficult to evaluate, given scan limitations. There are numerous circular-appearing areas of nodules with cavitation and surrounding ground-glass halo, suggestive of hematogenous seeding of likely infectious angio invasive process. Suggestion of hemorrhage into these cavitary lesions with small pulmonary arterial branch blush in the left upper lobe. Bilateral pleural effusions with small to moderate, right greater than left. No pneumothorax. Right hilar adenopathy. 4. Echocardiogram PRELIMINARY REPORT. FINAL REPORT PENDING. Left ventricle size normal. Left ventricular wall thickness normal. Overall left ventricular systolic function normal with ejection fraction of 55% to 60%. Right and left atrial volume indexes are normal. Aortic valve is trileaflet with no stenosis or regurgitation. Mitral valve leaflets are normal. Tricuspid valve is thickened, no stenosis, mild to moderate tricuspid regurgitation, mildly abnormal heart pressures. RVSP at rest 43 mmHg. Moderate nonmobile vegetation attached to the anterior tricuspid valve leaflet. Small nonmobile vegetation attached to the septal tricuspid leaflet. Vegetation measuring 1.8 cm in largest dimension. 5. Blood cultures 02/06/2019 in arms show Staph aureus. Sensitive to everything. 6. Blood cultures 02/08/2019 show one bottle that is no growth. Second bottle with gram-positive cocci in clusters. 7. Toxicology screen shows positive opiates, amphetamines, methamphetamines, cannabinoids. HOSPITAL COURSE: Patient is an unfortunate 29-year-old male who initially denied using any type of substance. He presented with fever, tachycardia, an elevated white cell count, elevated liver enzymes and bilirubin, and a lactic acid greater than 2. He was evaluated because of a cough for over a week. He was exhausted, could not get out of bed. A couple of days before admission began having hemoptysis. After looking at his x-ray, which showed embolic phenomena, I sternly warned him that lying to me may lead to a misdiagnosis on my part, mistreatment, and possible for him. He quickly explained that he does use methamphetamines, but he could not remember if he snorted or did IV drugs. It took him about a day to figure out that yes, he did remember doing IV drugs. We treated him as endocarditis. Echocardiogram quickly confirmed that. I spoke to life consultant, Dr. Aguilera, through the transfer center. Indications for immediate transfer would be a tricuspid vegetation greater than 2 cm. His patient was 1.8. Valve destruction, currently not seen. Symptoms of heart failure, currently not seen, and persistent bacteremia which was positive at [address] Aguilera did accept the patient, but [facility] did not have a bed available. I spoke to [facility] transfer center on 02/07/2019 as well as the 02/08/2019. Both times, no beds were available. On the day of discharge, the patient was starting to deteriorate even further with regard to horrific pleuritic chest wall pain. I did a CT angiogram, which showed the above findings. He was 97% on room air when he was admitted and was now needing 1 to 2 liters to maintain an O2 sat of 90%. He was starting to have grunting respiration. As such, with a third phone call to transfer center, patient was able to be accepted for transfer today. Other issues identified other than his sepsis with endocarditis was that of abnormal liver function studies. At first I thought emboli may be coming from the left side of the heart, and I did an ultrasound. Ultrasound did not show emboli; an echocardiogram then quickly showed me it was right-sided emboli. As such, a hepatitis panel was done, and he is hep C positive. Anion gap acidosis did resolve. Initial lactic acid was 2.7, then went down to 2, then went back up to 2.8. The patient was mildly hyponatremic at 133. White cell count was initially 23,000, climbed to 28,000, and was 19,000 on day of transfer. During his stay, nicotine patch and Ativan were offered for agitation, anxiety, tobacco abuse. At one point, he wanted to leave the building to go smoke. The most I agreed to was letting him leave the building to sit in the entry way of the hospital to get fresh air for that feeling of anxiety he was having. PHYSICAL EXAMINATION VITAL SIGNS: At discharge, he had now spiked a temp to 38.9. Pulse was 118. Blood pressure 115/66, respirations 27, and 93% on 1 liter. GENERAL: He is a cachectic, pale white male with grunting respiration. I asked him if it was because he was short of breath. He told me it was because it hurt too much to breathe. Every time he took a deep breath, it hurt. CHEST: He had squeaking rhonchi in both lung barillas. No wheezing. No egophony. HEART: Tachycardic, regular rate and rhythm with a systolic ejection murmur. Right ventricular lift was palpable. ABDOMEN: Soft with mild hepatomegaly and liver felt 1 fingerbreadth below the right costal margin. Normal bowel sounds. EXTREMITIES: Gaunt, diffuse muscle wasting; without clubbing, cyanosis, or edema. Patient is transferred to [facility] in guarded condition. Greater than 30 minutes was spent in coordinating discharge. TD: 02/09/2019 17:46 MTDD
--- NOTE | 2019-02-09 23:24 | Discharge Plan ---
Discharge Plan Disposition: 02 Transfer Acute Care Hosp Condition: Stable Diet: Regular Instruction Topics: Saccharomyces boulardii Florastor oral dosage forms, Vancomycin injection, Pneumonia, Pneumonia Tx, Sepsis, Tachycardia No Smoking: If you smoke, Please STOP! Call for help.
== END 2019-02-09 16:40 | disposition short-term general hospital (02) | DRG 871 ==
LOC: ED 15:25 → MS2 16:34
PROVIDERS: ADMIT Specialist; ATTEND Specialist
DX: A41.01 Sepsis due to Methicillin susceptible Staphylococcus aureus (principal); I33.0 Acute and subacute infective endocarditis; I26.99 Other pulmonary embolism without acute cor pulmonale; E87.2 Acidosis; E87.1 Hypo-osmolality and hyponatremia; I76 Septic arterial embolism; I24.0 Acute coronary thrombosis not resulting in myocardial infarction; B96.89 Other specified bacterial agents as the cause of diseases classified elsewhere; F90.9 Attention-deficit hyperactivity disorder, unspecified type; Z88.6 Allergy status to analgesic agent; F17.200 Nicotine dependence, unspecified, uncomplicated; F15.10 Other stimulant abuse, uncomplicated; B19.20 Unspecified viral hepatitis C without hepatic coma; R09.02 Hypoxemia; K76.0 Fatty (change of) liver, not elsewhere classified; K80.80 Other cholelithiasis without obstruction; R79.89 Other specified abnormal findings of blood chemistry; R45.1 Restlessness and agitation; F41.9 Anxiety disorder, unspecified; R80.9 Proteinuria, unspecified
CPT/HCPCS: 36415; 71045; 71275; 76700; 80048; 80053; 80074; 80202; 80306; 81001; 83605; 83690; 85025; 87040; 87077; 87181; 87389; 87640; 93005; 93306; 93970; 94640; 96361; 96374; 99284; A9270; J1170; J2060; J2270; J3370; Q9967; 81003; 87086